=== PATIENT | male | born 1995 | race Caucasian/White ===

== ENCOUNTER 2019-01-19 18:07 | Emergency (ER) | payer MEDICAID ==
[~2019-01-19] VITALS: Ht 177.8 cm; Wt 72.6 kg
[2019-01-19] MEDS ORDERED: ONDANSETRON 4 MG/2 ML VIAL IV ONE (18:45)
[2019-01-19] MEDS ORDERED: PANTOPRAZOLE SODIUM 40 MG VIAL IV ONE (18:45)
[2019-01-19] MEDS ORDERED: IV NORMAL SALINE 1000 ML BAG IV ONE (18:45)
[2019-01-19] MEDS ORDERED: ONDANSETRON 4 MG/2 ML VIAL ONE (18:56)
[2019-01-19] MEDS ORDERED: PANTOPRAZOLE SODIUM 40 MG VIAL ONE (18:56)
[2019-01-19 18:58] LABS: BASOPHILS % (AUTO) 0.6 % (0.0-2.0); EOSINOPHILS # (AUTO) 0.1 K/uL (0.0-0.7); EOSINOPHILS % (AUTO) 0.9 % (0.0-7.0); HEMATOCRIT 46.6 % (36.7-47.1); HEMOGLOBIN 15.9 g/dL (12.5-16.3); LYMPHOCYTES # (AUTO) 3.6 K/uL (20.0-40.0); LYMPHOCYTES % (AUTO) 44.8 % (20.5-51.5); MEAN CORPUSCULAR HEMOGLOBIN 30.9 uug (23.8-33.4); MEAN CORPUSCULAR HGB CONC 34 g/dL (32.5-36.3); MEAN CORPUSCULAR VOLUME 90.7 fL (73.0-96.2); MONOCYTES # (AUTO) 0.6 K/uL (2.0-10.0); MONOCYTES % (AUTO) 7.2 % (0.0-11.0); NEUTROPHILS # (AUTO) 3.8 K/uL (1.8-8.9); NEUTROPHILS % (AUTO) 46.5 % (38.5-71.5); PLATELET COUNT (AUTO) 230 K/uL (152-348); RED BLOOD CELL COUNT(AUTO) 5.14 MIL/uL (4.06-5.63); WHITE BLOOD COUNT (AUTO) 8.1 K/uL (3.6-10.2)
--- NOTE | 2019-01-19 19:04 | NUR ---
PATIENT WAS SEEN BY . IV PLACED, MEDS GIVEN. PT AT CT SCAN
--- NOTE | 2019-01-19 19:05 | NUR ---
HANDOFF REPORT GIVEN TO ALTON CARTER
--- NOTE | 2019-01-19 19:05 | NUR ---
hand off done from outgoing day shift RN. pt back from CT via gurney accompanied by tech pt NAD, in bed, bed in lowest position. Siderails up x 2. Call light within reach. Will continue to monitor accordingly
[2019-01-19 19:09] LABS: BILIRUBIN,DIRECT 0.3 mg/dL (0.0-0.2); BILIRUBIN,TOTAL 3.7 mg/dL (0.2-1.0); CREATININE 0.9 mg/dL (0.6-1.3); POTASSIUM 3.8 mmol/L (3.5-5.1); TOTAL PROTEIN, SERUM 8.7 g/dL (6.4-8.2)
--- NOTE | 2019-01-19 20:05 | NUR ---
Patient discharged to home in stable conditon. Written and verbal after care instructions given. Patient verbalizes understanding of instructions. ambulatory with stable gait. all belongings with patient
[2019-01-19 20:33] VITALS: BP 120/80
== END 2019-01-19 20:05 | disposition home or self-care (01) ==
LOC: ER 18:10
DX: K21.0 Gastro-esophageal reflux disease with esophagitis (principal); F12.10 Cannabis abuse, uncomplicated; Z88.0 Allergy status to penicillin
CPT/HCPCS: 36415; 74176; 80048; 80076; 83690; 85025; 96374; 96375; 99284; C9113; J2405; A4663; J7030

== ENCOUNTER 2019-05-19 18:17 | Emergency (ER) | payer MEDICAID ==
[~2019-05-19] VITALS: Ht 177.8 cm; Wt 70.3 kg
[2019-05-19] MEDS ORDERED: MAG HYDROX/AL HYDROX/SIMETH 30 ML LIQUID UDC ONE (19:05)
[2019-05-19] MEDS ORDERED: FAMOTIDINE 20 MG TABLET ONE (19:05)
[2019-05-19] MEDS ORDERED: DICYCLOMINE HCL LIQ 10 MG/5 ML UDC ONE (19:06)
[2019-05-19] MEDS ORDERED: LIDOCAINE VISCUS 2% 15 ML UDC ONE (19:06)
[2019-05-19] MEDS: MAG HYDROX/AL HYDROX/SIMETH 30 ML LIQUID UDC PO ONE (19:09)
[2019-05-19] MEDS: LIDOCAINE VISCUS 2% 15 ML UDC MM ONE (19:09)
[2019-05-19] MEDS: DICYCLOMINE HCL LIQ 10 MG/5 ML UDC PO ONE (19:09)
[2019-05-19] MEDS: FAMOTIDINE 20 MG TABLET PO ONE (19:10)
--- NOTE | 2019-05-19 19:13 | NUR ---
Patient discharged to home in stable conditon. Written and verbal after care instructions given. Patient verbalizes understanding of instructions.
[2019-05-19 19:15] VITALS: BP 138/77
== END 2019-05-19 19:15 | disposition home or self-care (01) ==
LOC: ER 18:18
DX: G89.29 Other chronic pain (principal); R10.84 Generalized abdominal pain; F12.10 Cannabis abuse, uncomplicated; Z88.0 Allergy status to penicillin
CPT/HCPCS: A4663